=== PATIENT | female | born 1975 | race Caucasian/White ===

== ENCOUNTER 2016-06-21 20:04 | Emergency (ER) | payer OTHER ==
[~2016-06-21 20:04] MED LIST: ABILIFY10 MG PO; ALBUTEROL17 GM; ASPIRIN81 M1 PO; BENICAR20 M1 PO; BLOOD PRESSURE MED; CIPRO500 MG PO; CLARITIN10 MG PO; CLOTRIMAZOLE AN TP; COZAAR50 M1 PO; CYCLOBENZAPRINE10 M1 PO; CYCLOBENZAPRINE5 M1 PO; DIFLUCAN150 MG PO; EFFEXOR XR150 MG; EFFEXOR XR150 MG PO; FIORICET TABLET1 TAB PO; FISH OIL 1,2001 EAC4 PO; FLEXERIL10 MG PO; FLOVENT INH; GLIMEPIRIDE4 MG PO; GUAIFENESIN-COD10 ML PO; HUMALOG100 U/ML SQ; HUMALOG100 UNITS/; HUMULIN; HUMULIN N100 UNIT/2 SC; HYDROCODON-ACE1 EA16 PO; LANTUS100 U/ML SC; LANTUS100 UNITS/ SC; LISINOPRIL10 MG; LOTRIMIN30 GM TP; NORCO 5/325 TAB1 TAB PO; NORCO 5/3251 TAB PO; NORVASC10 M2 PO; OMEPRAZOLE PO; PREDNISONE10 MG PO; SIMVASTATIN PO; SIMVASTATIN10 M1 PO; SINGULAIR10 MG; SKELAXIN800 M3 PO; TAMIFLU75 MG/CAP NG; TRAMADOL HCL50 M2 PO; TRAZODONE50 MG PO; VENTOLIN HFA18 G2 INH; VENTOLIN HFA8 GM IH; VYTORIN; ZESTRIL10 MG PO; ZYRTEC10 MG; [UNRECOGNIZED DRUG - REMARK]
[2016-06-21] MEDS ORDERED: NORCO 5-325 TA1 EACH PO (23:36)
== END 2016-06-21 23:51 ==
LOC: EDMED 20:04
DX: M25.562 Pain in left knee (principal); I10 Essential (primary) hypertension; E78.5 Hyperlipidemia, unspecified; E10.9 Type 1 diabetes mellitus without complications; W18.30XA Fall on same level, unspecified, initial encounter; Y92.69 Other specified industrial and construction area as the place of occurrence of the external cause; Y99.0 Civilian activity done for income or pay